=== PATIENT | male | born 1955 | race Asian ===

== ENCOUNTER 2019-02-25 17:04 | Outpatient (CLI) | payer OTHER | END 2019-02-25 17:15 | disposition short-term general hospital (02) | LOC: AMB 17:04 | DX: R41.82 Altered mental status, unspecified (principal) | CPT/HCPCS: A0425; A0427 ==

== ENCOUNTER 2019-02-25 17:26 | Emergency (ER) | payer OTHER ==
[~2019-02-25] VITALS: Ht 165.1 cm; Wt 72.6 kg
[2019-02-25 17:49] LABS: PLATELET COUNT 160 K/uL (142-355)
[2019-02-25 18:46] LABS: POTASSIUM 4.4 mmol/L (3.6-5.2)
[2019-02-25 23:30] VITALS: BP 154/88; TEMP 98.9
== END 2019-02-25 23:30 | disposition short-term general hospital (02) ==
LOC: ED 17:26
PROVIDERS: Emergency Medicine
DX: E86.0 Dehydration (principal); R79.89 Other specified abnormal findings of blood chemistry; R41.0 Disorientation, unspecified
CPT/HCPCS: 36415; 80053; 80307; 80320; 82550; 82553; 84484; 85027; 93005; 96361; 96365; 99284

== ENCOUNTER 2019-02-25 23:42 | Outpatient (CLI) | payer OTHER | END 2019-02-26 00:57 | disposition short-term general hospital (02) | LOC: AMB 23:42 | DX: E86.0 Dehydration (principal); R41.0 Disorientation, unspecified; R79.89 Other specified abnormal findings of blood chemistry | CPT/HCPCS: A0425; A0429 ==